=== PATIENT | male | born 2000 | race African-American/Black ===

== ENCOUNTER 2021-09-03 20:41 | Emergency (ER) | payer OTHER ==
[~2021-09-03] VITALS: Ht 188 cm; Wt 69.1 kg
[2021-09-03 21:02] LABS: HEMATOCRIT 46.9 % (36.0-47.0); HEMOGLOBIN 16.3 g/dl (12.5-16.1); MEAN CELL VOLUME 85 fl (80.0-95.0); MEAN CORPUSCULAR HEMOGLOBIN 29 pg (26-32); MEAN CORPUSCULAR HGB CONC 35 g/dl (33.0-37.0); MEAN PLATELET VOLUME 10.4 fl (7.4-10.4); PLATELET COUNT 169 K/mm3 (130-400); RED BLOOD COUNT 5.55 M/mm3 (4.20-5.60); REDCELL DISTRIBUTION WIDTH-CV 12.2 % (11.5-14.5)
[2021-09-03 21:22] LABS: ALBUMIN 4.4 gm/dL (3.5-5.0); BILIRUBIN,TOTAL 1.4 mg/dL (0.2-1.2); C-REACTIVE PROTEIN 1.98 mg/dL (0.00-0.50); CREATININE, serum 1.14 mg/dL (0.72-1.25); POTASSIUM 4.1 mmol/L (3.5-4.5); TOTAL PROTEIN 7.9 gm/dL (6.2-8.1)
[2021-09-03 21:35] LABS: BAND 15 % (0-10); LYMPHOCYTE 4 % (20.0-51.0); NEUTROPHILS 76 % (42.0-75.2)
[2021-09-03 21:36] LABS: PLATELET ESTIMATE NORMAL (NORMAL)
[2021-09-03 22:36] LABS: COLLECTION METHOD CLEAN CATCH
[2021-09-03 22:46] LABS: MUCOUS Present (NOT PRESENT); PH 6 (5-8); SQUAMOUS EPITHELIAL None Seen /hpf (0-10); URINE APPEARANCE Clear (CLEAR/HAZY); URINE BACTERIA None Seen /hpf (NONE SEEN); URINE BILIRUBIN Negative (NEGATIVE); URINE BLOOD Negative (NEGATIVE); URINE COLOR Yellow (YELLOW); URINE GLUCOSE Negative (NEGATIVE); URINE KETONE Negative (NEGATIVE); URINE LEUKOCYTE ESTERASE Negative (NEGATIVE); URINE NITRATE Negative (NEGATIVE); URINE PROTEIN(semi-quant) Negative (NEGATIVE); URINE RBC 0-2 /hpf (0-2); URINE UROBILINOGEN Negative (NEGATIVE)
[2021-09-03] MEDS ORDERED: ZOFRAN ODT4 MG PO (23:15)
[2021-09-03 23:34] VITALS: BP 120/67; PULSE 84; TEMP 98.7
== END 2021-09-03 23:34 | disposition home or self-care (01) ==
LOC: COL.ER 20:41
PROVIDERS: Emergency Medicine
DX: R10.31 Right lower quadrant pain (principal); R11.2 Nausea with vomiting, unspecified; R19.7 Diarrhea, unspecified; R50.9 Fever, unspecified; M54.9 Dorsalgia, unspecified; J45.909 Unspecified asthma, uncomplicated; Z20.822 Contact with and (suspected) exposure to COVID-19
CPT/HCPCS: J1885; J2405; J7030; Q9967

== ENCOUNTER 2022-06-09 20:36 | Emergency (ER) | payer SELFPAY ==
[~2022-06-09] VITALS: Ht 188 cm; Wt 70.5 kg
[~2022-06-09 20:36] MED LIST: ZOFRAN ODT4 MG PO
[2022-06-09 20:39] VITALS: TEMP 97.7
[2022-06-09 21:17] LABS: BASO # 0.1 K/mm3 (0.0-0.2); BASO % 0.4 % (0.0-2.0); EOS % 0.1 % (0.0-4.0); GRAN # 11.7 K/mm3 (1.4-6.5); GRAN % 84.8 % (42.2-75.2); HEMATOCRIT 43.1 % (42.0-52.0); HEMOGLOBIN 15.4 g/dl (13.5-18.0); LYMPH # 1.1 K/mm3 (1.2-3.4); MEAN CELL VOLUME 83 fl (80.0-100.0); MEAN CORPUSCULAR HEMOGLOBIN 30 pg (27-31); MEAN CORPUSCULAR HGB CONC 36 g/dl (33.0-37.0); MEAN PLATELET VOLUME 10.3 fl (7.4-10.4); MONO # 0.9 K/mm3 (0.1-0.6); MONO % 6.6 % (1.7-9.3); PLATELET COUNT 195 K/mm3 (130-400); RED BLOOD COUNT 5.18 M/mm3 (4.20-5.60); REDCELL DISTRIBUTION WIDTH-CV 12.3 % (11.5-14.5)
[2022-06-09 21:33] LABS: ALBUMIN 4.5 gm/dL (3.5-5.0); C-REACTIVE PROTEIN 0.03 mg/dL (0.00-0.50); CALCIUM 9.6 mg/dL (8.4-10.2); CREATININE, serum 1.44 mg/dL (0.72-1.25); TOTAL PROTEIN 7.7 gm/dL (6.2-8.1)
[2022-06-09 22:34] VITALS: BP 111/70; PULSE 78
== END 2022-06-09 22:40 | disposition home or self-care (01) ==
LOC: COL.ER 20:36
PROVIDERS: Emergency Medicine
DX: E86.0 Dehydration (principal); E87.6 Hypokalemia; R79.89 Other specified abnormal findings of blood chemistry
CPT/HCPCS: J2405; J2550; J7030

== ENCOUNTER 2023-08-11 12:06 | Emergency (ER) | payer SELFPAY ==
[~2023-08-11] VITALS: Ht 188 cm; Wt 69.5 kg
[2023-08-11 12:47] VITALS: BP 130/82; PULSE 60; TEMP 97.6
== END 2023-08-11 12:47 | disposition home or self-care (01) ==
LOC: COL.ER 12:06
DX: S09.90XA Unspecified injury of head, initial encounter (principal); S00.01XA Abrasion of scalp, initial encounter; V49.49XA Driver injured in collision with other motor vehicles in traffic accident, initial encounter; Y92.410 Unspecified street and highway as the place of occurrence of the external cause